=== PATIENT | male | born 1990 | race Caucasian/White ===

== ENCOUNTER 2022-04-02 07:37 | Day surgery (SDC) | payer OTHER ==
[2022-03-30 16:02] VITALS: BMI 25.1
[2022-04-02 08:01] VITALS: TEMP 98
[2022-04-02] MEDS ORDERED: PROPOFOL 100 ML ONE (08:51)
[2022-04-02 10:07] VITALS: BP 101/78; PULSE 88; RESP 19
== END 2022-04-02 10:07 | disposition home or self-care (01) ==
LOC: FASU-ENDO 07:37
PROVIDERS: ATTEND Internal Medicine Gastroenterology
PROC: 0DBN8ZX Excision of Sigmoid Colon, Via Natural or Artificial Opening Endoscopic, Diagnostic (ICD-10-PCS; 2022-04-02)
PROC: 0DBP8ZX Excision of Rectum, Via Natural or Artificial Opening Endoscopic, Diagnostic (ICD-10-PCS; principal; 2022-04-02 08:55)
DX: K62.89 Other specified diseases of anus and rectum (principal); K63.89 Other specified diseases of intestine
CPT/HCPCS: 88305-TC; 88342-TC